=== PATIENT | male | born 1955 | race Caucasian/White ===

== ENCOUNTER 2019-08-20 18:28 | Emergency (ER) | payer BC, OTHER ==
[~2019-08-20] VITALS: Ht 180.3 cm; Wt 77.0 kg
[2019-08-20] MEDS ORDERED: ASPIRIN 81 MG TABLET CHEW PO ONE (19:00)
[2019-08-20 19:06] LABS: BASOPHILS # (AUTO) 0.02 x10^3/uL (0-0.1); BASOPHILS % (AUTO) 0 % (0-1); EOSINOPHILS # (AUTO) 0.02 x10^3/uL (0-0.4); EOSINOPHILS % (AUTO) 0 % (1-7); LYMPHOCYTES # (AUTO) 1.55 x10^3/uL (1-3.4); LYMPHOCYTES % (AUTO) 14 % (22-44); MD NO; MEAN CORPUSCULAR HEMOGLOBIN 30.7 pg (27.5-34.5); MEAN CORPUSCULAR VOLUME 93.2 fL (81-97); MEAN PLATELET VOLUME 8.1 fL (7.4-10.4); MONOCYTES # (AUTO) 0.97 x10^3/uL (0.2-0.8); MONOCYTES % (AUTO) 9 % (2-9); NEUTROPHILS # (AUTO) 8.53 x10^3/uL (1.8-6.8); NEUTROPHILS % (AUTO) 77 % (42-75); PLATELET COUNT 245 x10^3/uL (130-400); RED BLOOD COUNT 4.89 x10^6/uL (4.38-5.82); RED CELL DISTRIBUTION WIDTH 13.6 % (9.4-14.8)
[2019-08-20 19:13] LABS: ALANINE AMINOTRANSFERASE 23 U/L (12-78); ALBUMIN 3.8 g/dL (3.4-5.0); ANION GAP 11 mmol/L (5-15); CALCIUM 8.9 mg/dL (8.5-10.1); CHLORIDE 105 mmol/L (98-107); CREATININE 0.93 mg/dL (0.7-1.3)
[2019-08-20 19:18] LABS: ALKALINE PHOSPHATASE 111 U/L (45-117); BILIRUBIN,TOTAL 2.2 mg/dL (0.2-1.0); TOTAL PROTEIN 7.1 g/dL (6.4-8.2); TROPONIN I < 0.015 ng/mL (0.000-0.045)
--- NOTE | 2019-08-20 19:44 | NUR ---
pt to room from lobby
--- NOTE | 2019-08-20 20:19 | NUR ---
PT CONNECTED TO MONITORS AND IN HOSPITAL GOWN.
[2019-08-20] MEDS ORDERED: LEVO50TA5 PO (20:26)
[2019-08-20] MEDS ORDERED: EMPA10TA PO (20:26)
[2019-08-20] MEDS ORDERED: ATOR40TA78 PO (20:26)
[2019-08-20] MEDS ORDERED: METF10007 PO (20:26)
[2019-08-20] MEDS ORDERED: ASPI81TA45 PO (20:26)
[2019-08-20] MEDS ORDERED: ASCO10004 PO (20:26)
[2019-08-20] MEDS ORDERED: ASPIRIN 81 MG TABLET CHEW ONE (20:38)
[2019-08-20 21:10] LABS: RAPID INFLUENZA A Negative (Negative); RAPID INFLUENZA B Negative (Negative)
[2019-08-20 21:34] VITALS: BP 107/64
--- NOTE | 2019-08-20 21:38 | NUR ---
Patient/Caregiver given discharge instructions and they have confirmed that they understand the instructions. Patient ambulatory with steady gait.
== END 2019-08-20 21:51 | disposition home or self-care (01) ==
LOC: ED 20:00
DX: R07.89 Other chest pain (principal)
CPT/HCPCS: 36415; 71045; 80053; 84484; 85025; 85379; 87400; 93005; 99284